=== PATIENT | female | born 1930 | race Caucasian/White ===

== ENCOUNTER 2018-03-30 09:49 | Outpatient (CLI) | payer MEDICARE, BC | END 2018-03-30 09:50 | disposition home or self-care (01) | LOC: BICMAMMO 09:49 | PROVIDERS: ATTEND Internal Medicine | DX: Z12.31 Encounter for screening mammogram for malignant neoplasm of breast (principal); Z85.3 Personal history of malignant neoplasm of breast | CPT/HCPCS: 77063; 77067 ==

== ENCOUNTER 2019-01-08 12:46 | Outpatient (CLI) | payer MEDICARE, BC ==
--- NOTE | 2019-01-08 13:45 | RAD ---
EXAM: Chest 2 views: HISTORY: Chest pain, rib pain COMPARISON: 12/01/2017 FINDINGS: Postop midline sternotomy and valvular replacement. Right ICD. Stable chronic appearing increased linear and interstitial markings and biapical pleural thickening. Heart size:Within normal limits. Lungs:Clear of acute process. Atherosclerotic changes of the aorta. No confluent pneumonia, overt edema, pleural effusion, pneumothorax, or other significant acute proce ss. IMPRESSION: Stable chronic changes. No pneumothorax or pleural effusion. Atherosclerosis of the aorta. No acute intrathoracic disease.
--- NOTE | 2019-01-08 13:49 | RAD ---
Exam: Left RIBS 2 views: HISTORY: Persistent left-sided pain following an injury last month COMPARISON: 12/10/2018 FINDINGS: Slight bending deformity of the left fifth anterior rib and nondisplaced fracture of the left sixth a nterior rib. No pneumothorax or pleural effusion. IMPRESSION: Evidence for healed or healing left fifth and sixth nondisplaced rib fractures. No pneumothorax or pl eural effusion.
== END 2019-01-08 12:47 | disposition home or self-care (01) ==
LOC: BICRAD 12:46
PROVIDERS: ATTEND Internal Medicine
DX: R07.9 Chest pain, unspecified (principal); I70.0 Atherosclerosis of aorta; S22.42XD Multiple fractures of ribs, left side, subsequent encounter for fracture with routine healing; Z91.81 History of falling
CPT/HCPCS: 71046

== ENCOUNTER 2019-04-01 09:00 | Outpatient (CLI) | payer MEDICARE, BC ==
--- NOTE | 2019-04-01 10:34 | MMO ---
Bilateral MAMMO Bilat Screen [facility]. CLINICAL HISTORY: Patient is 88 years old and is seen for screening. The patient has no family history of breast cancer. The patient has a history of malignant (generic) in the left breast 1995. The patient has a history of left Excisional Biopsy in 1995 - malignant and left Lumpectomy in 1995 - malignant. VIEWS: The views performed were: bilateral craniocaudal with tomosynthesis; bilateral mediolateral oblique with tomosynthesis; and right mediolateral oblique. FILMS COMPARED: The present examination has been compared to prior imaging studies performed at [facility] on 03/18/2015, 03/28/2016, 03/29/2017 and 03/30/2018. This study has been interpreted with the assistance of computer-aided detection. MAMMOGRAM FINDINGS: There are scattered fibroglandular densities. There are no suspicious masses, suspicious calcifications, or new areas of architectural distortion. IMPRESSION: THERE IS NO MAMMOGRAPHIC EVIDENCE OF MALIGNANCY. A ROUTINE FOLLOW-UP MAMMOGRAM IN 1 YEAR IS RECOMMENDED. THE RESULTS OF THIS EXAM WERE SENT TO THE PATIENT. ACR BI-RADS Category 1 - Negative MAMMOGRAPHY NOTE: 1. A negative mammogram report should not delay a biopsy if a dominant of clinically suspicious mass is present. 2. Approximately 10% to 15% of breast cancers are not detected by mammography. 3. Adenosis and dense breasts may obscure an underlying neoplasm. Reported by: Yahir AVILES Electonically Signed: [id number]
== END 2019-04-01 09:01 | disposition home or self-care (01) ==
LOC: BICMAMMO 09:00
PROVIDERS: ATTEND Internal Medicine
DX: Z12.31 Encounter for screening mammogram for malignant neoplasm of breast (principal)
CPT/HCPCS: 77063; 77067

== ENCOUNTER 2021-09-22 09:04 | Outpatient (CLI) | payer MEDICARE, BC | END 2021-09-22 09:05 | disposition home or self-care (01) | LOC: BICMAMMO 09:04 | PROVIDERS: ATTEND Family Medicine | DX: Z13.820 Encounter for screening for osteoporosis (principal); N95.9 Unspecified menopausal and perimenopausal disorder; M81.0 Age-related osteoporosis without current pathological fracture | CPT/HCPCS: 77080 ==